=== PATIENT | female | born 1985 | race Caucasian/White ===

== ENCOUNTER → 2022-04-19 13:04 | Outpatient (BNVA) | payer OTHER, SELFPAY | PROVIDERS: Visit Provider Internal Medicine | DX: S23.3XXA Sprain of ligaments of thoracic spine, initial encounter (principal); X50.0XXA Overexertion from strenuous movement or load, initial encounter | CPT/HCPCS: 72072; 99203 ==

== ENCOUNTER → 2022-04-29 15:10 | Outpatient (BNVA) | payer OTHER, SELFPAY | PROVIDERS: Visit Provider Internal Medicine | DX: M54.6 Pain in thoracic spine (principal) | CPT/HCPCS: 99213 ==

== ENCOUNTER 2022-05-20 15:42 | Outpatient (REF) | payer OTHER, SELFPAY ==
--- NOTE | ~2022-05-20 | MR_ITS ---
MR THORACIC SPINE WITHOUT CONTRAST CLINICAL INFORMATION: T9-T10 area tender to touch. COMPARISON: Thoracic spine radiographs 04/19/2022. TECHNIQUE: MRI of the thoracic spine was obtained using routine sequences without contrast. FINDINGS: There are 12 rib bearing thoracic type vertebral bodies. Thoracic alignment is normal. The vertebral body heights are maintained. There is mild disc volume loss at the mid to lower thoracic levels. There is no bone marrow edema. There are no acute fractures. There is a nonspecific 1.4 cm rounded focus of low T1 signal intensity within the central aspect of the T7 vertebral that can be further assessed with a PET scan. Thoracic cord morphology is normal. There is no thoracic cord signal abnormality. Conus terminates at the L1 level. Accounting for artifact there are no definite cord signal changes though assessment is limited. No significant extraspinal soft tissue findings are appreciated. Small paracentral disc protrusions at T7-T8, T8-T9, T9-T10, T10-T11, and T11-T12 mildly narrow the central canal at these levels. There is no severe central canal stenosis and there is no severe foraminal stenosis within the thoracic spine. MR/MR thoracic spine wo con IMPRESSION: - There is a nonspecific 1.4 cm rounded focus of low T1 signal intensity within the central aspect of the T7 vertebral that can be further assessed with a PET scan. - No acute fractures. Small paracentral disc protrusions at T7-T8, T8-T9, T9-T10, T10-T11, and T11-T12 mildly narrow the central canal at these levels. There is no severe central canal stenosis and there is no severe foraminal stenosis within the thoracic spine.
== END 2022-05-20 15:43 | disposition home or self-care (01) ==
LOC: HO.MRI 15:42
PROVIDERS: Visit Provider Internal Medicine
DX: M54.6 Pain in thoracic spine (principal)
CPT/HCPCS: 72146

== ENCOUNTER → 2022-06-11 14:41 | Outpatient (BNVA) | payer OTHER, SELFPAY | PROVIDERS: Visit Provider Internal Medicine | DX: M51.14 Intervertebral disc disorders with radiculopathy, thoracic region (principal) | CPT/HCPCS: 99213 ==

== ENCOUNTER → 2022-07-22 14:42 | Outpatient (BNVA) | payer OTHER, SELFPAY | PROVIDERS: Visit Provider Internal Medicine | DX: M54.6 Pain in thoracic spine (principal) | CPT/HCPCS: 99213 ==